=== PATIENT | female | born 1940 | race Caucasian/White ===

== ENCOUNTER 2020-01-01 13:09 | Outpatient (RCR) | payer MEDICARE, BC | END 2020-01-29 | LOC: M PT 13:09 | PROVIDERS: ATTEND Family Medicine | DX: I89.0 Lymphedema, not elsewhere classified (principal) ==

== ENCOUNTER 2020-05-15 15:03 | Outpatient (RCR) | payer MEDICARE, BC | END 2020-05-30 | LOC: M PT 15:03 | PROVIDERS: ATTEND Family Medicine | DX: I89.0 Lymphedema, not elsewhere classified (principal) ==